=== PATIENT | female | born 1985 ===

== ENCOUNTER 2022-07-19 16:39 | Observation (INO) ==
[2022-07-19] MEDS: PIPERACILLIN/TAZOBACTAM 3,375 MG in SODIUM CHLORIDE 0.9% 100 ML IV SCH (18:50)
[2022-07-19] MEDS: MORPHINE 2 MG/1 ML SYRINGE IV PRN (18:58)
[2022-07-19] MEDS: ONDANSETRON 4 MG/2 ML VIAL IV PRN (18:58)
[2022-07-19] MEDS: DEXTROSE 5% NACL 0.45% 1,000 ML IV SCH (20:36)
[2022-07-20] MEDS: PIPERACILLIN/TAZOBACTAM 3,375 MG in SODIUM CHLORIDE 0.9% 100 ML IV SCH ×3 (01:11→17:00)
[2022-07-20] MEDS: MORPHINE 2 MG/1 ML SYRINGE IV PRN (03:13)
[2022-07-20] MEDS ORDERED: ACETAMINOPHEN 325 MG TABLET PO PRN (04:24)
[2022-07-20 04:59] LABS: Basophils % 0.1 % (0.0-0.8); Hematocrit 34.9 VOL% (35.7-47.0); Hemoglobin 10.9 GM/DL (12.0-16.0); Immature Granulocytes % 0.6 %; Immature Granulocytes Absolute 0.09 #; Lymphocytes # 1.9 10*3/uL (1.4-4.0); Lymphocytes % 12.2 % (21.3-54.2); Mean Corpuscular HGB Conc 31.2 GM/DL (32-36); Mean Corpuscular Volume 87.3 FL (87-102); Mean Platelet Volume 9.8 FL (9.6-12.0); Monocytes # 1.2 10*3/uL (0.11-0.8); Monocytes % 7.9 % (1.7-12.7); Neutrophils % 79.2 % (38.7-73.9); Platelet Count 241 T/CUMM (130-400); Red Cell Distribution Width 14.5 % (9.3-17.3); White Blood Count 15.7 T/CUMM (4-12)
[2022-07-20 05:29] LABS: Albumin 2.9 G/DL (3.4-5.0); Bilirubin,Total 0.6 MG/DL (0.20-1.00); Calcium 8.1 MG/DL (8.5-10.1); Osmolality,Calculated 278.4 MOS/KG (273-304); Potassium 3.4 MMOL/L (3.5-5.1); Total Protein 7.3 G/DL (6.4-8.2)
[2022-07-20] MEDS: DEXTROSE 5% NACL 0.45% 1,000 ML IV SCH ×3 (08:01→16:59)
[2022-07-20] MEDS: PANTOPRAZOLE 40 MG VIAL IV SCH (08:02)
[2022-07-20] MEDS ORDERED: HYDROmorphone 1 MG/1 ML SYRINGE IV PRN ×2 (10:29)
[2022-07-20] MEDS ORDERED: propofoL 200 MG/20 ML VIAL IV ONE (14:51)
[2022-07-20] MEDS ORDERED: ROCURONIUM 50 MG/5 ML VIAL IV ONE (14:51)
[2022-07-20] MEDS ORDERED: MIDAZOLAM 2 MG/2 ML VIAL ONE (14:51)
[2022-07-20] MEDS ORDERED: fentaNYL 100 MCG/2 ML VIAL ONE (14:51)
[2022-07-20] MEDS ORDERED: LIDOCAINE 2% 5 ML VIAL ONE (14:51)
[2022-07-21] MEDS: PIPERACILLIN/TAZOBACTAM 3,375 MG in SODIUM CHLORIDE 0.9% 100 ML IV SCH ×3 (00:44→17:13)
[2022-07-21] MEDS: KETOROLAC 15 MG/1 ML VIAL IV PRN ×2 (03:51→19:55)
[2022-07-21 06:30] LABS: Basophils % 0.2 % (0.0-0.8); Eosinophils # 0.1 10*3/uL (0.0-0.87); Eosinophils % 0.7 % (0.00-10.9); Hematocrit 32.3 VOL% (35.7-47.0); Hemoglobin 10.2 GM/DL (12.0-16.0); Immature Granulocytes % 0.5 %; Immature Granulocytes Absolute 0.07 #; Lymphocytes # 2.4 10*3/uL (1.4-4.0); Lymphocytes % 18.7 % (21.3-54.2); Mean Corpuscular HGB Conc 31.6 GM/DL (32-36); Mean Corpuscular Volume 86.4 FL (87-102); Monocytes # 1.3 10*3/uL (0.11-0.8); Monocytes % 10.1 % (1.7-12.7); Neutrophils % 69.8 % (38.7-73.9); Platelet Count 235 T/CUMM (130-400); Red Blood Count 3.74 MC/CUMM (3.8-5.5); Red Cell Distribution Width 14.4 % (9.3-17.3)
[2022-07-21] MEDS ORDERED: propofoL 200 MG/20 ML VIAL IV ONE ×2 (08:34→09:49)
[2022-07-21] MEDS: PANTOPRAZOLE 40 MG VIAL IV SCH (08:49)
[2022-07-21] MEDS: DEXTROSE 5% NACL 0.45% 1,000 ML IV SCH ×2 (08:49→19:49)
[2022-07-21] MEDS ORDERED: INDOCYANINE GREEN 25 MG VIAL IV ONE ×3 (09:35→10:16)
[2022-07-21] MEDS ORDERED: MIDAZOLAM 2 MG/2 ML VIAL ONE (09:48)
[2022-07-21] MEDS ORDERED: LIDOCAINE 2% 5 ML VIAL ONE (09:48)
[2022-07-21] MEDS ORDERED: fentaNYL 100 MCG/2 ML VIAL ONE (09:49)
[2022-07-21] MEDS ORDERED: ONDANSETRON 4 MG/2 ML VIAL ONE (09:49)
[2022-07-21] MEDS ORDERED: ROCURONIUM 50 MG/5 ML VIAL IV ONE (09:49)
[2022-07-21] MEDS ORDERED: PHENYLEPHRINE 1 MG/10 ML SYRINGE IV ONE (10:54)
[2022-07-21] MEDS ORDERED: SUGAMMADEX 200 MG/2 ML VIAL IV ONE (12:34)
[2022-07-21] MEDS ORDERED: SEVOFLURANE 1 UNIT/15 MINUTE INH ONE (13:03)
[2022-07-21] MEDS ORDERED: TISSUE ADHESIVE 1 EACH APPLICATOR TOP ONE (13:16)
[2022-07-21] MEDS: HYDROmorphone 1 MG/1 ML SYRINGE IV PRN ×2 (13:35→13:46)
[2022-07-21] MEDS ORDERED: ONDANSETRON 4 MG/2 ML VIAL IV PRN (13:35)
[2022-07-21] MEDS: ONDANSETRON 4 MG/2 ML VIAL IV PRN (17:13)
[2022-07-22] MEDS: PIPERACILLIN/TAZOBACTAM 3,375 MG in SODIUM CHLORIDE 0.9% 100 ML IV SCH ×2 (01:30→09:36)
[2022-07-22] MEDS: KETOROLAC 15 MG/1 ML VIAL IV PRN ×2 (01:31→09:37)
[2022-07-22] MEDS: DEXTROSE 5% NACL 0.45% 1,000 ML IV SCH (03:25)
[2022-07-22] MEDS: PANTOPRAZOLE 40 MG VIAL IV SCH (09:38)
[2022-07-22 12:00] VITALS: BP 126/67
== END 2022-07-22 13:20 | disposition home or self-care (01) ==
LOC: EDUNIT# → N.ED 16:39 → N.EDINP 16:39 → N.3E 18:47
PROVIDERS: ADMIT Student in an Organized Health Care Education/Training Program; ATTEND Student in an Organized Health Care Education/Training Program